=== PATIENT | female | born 1985 | race Caucasian/White ===

== ENCOUNTER 2022-05-06 10:31 | Day surgery (SDC) | payer BC ==
[2022-05-05 13:32] VITALS: BMI 25.7
[~2022-05-06 10:31] MED LIST: LACTATED RINGERS 1,000 ML IV SCH
[2022-05-06 12:07] VITALS: RESP 16; TEMP 97.6
[2022-05-06] MEDS ORDERED: LIDOCAINE 1% (10MG/ML) FOR IV START INTRADERMA ONE (12:08)
[2022-05-06] MEDS ORDERED: PROPOFOL 10 MG/ML 20 ML VIAL IV ONE (12:47)
[2022-05-06] MEDS ORDERED: LIDOCAINE 2% INJ 20 MG/ML (2 ML VIAL) ONE (12:47)
--- NOTE | 2022-05-06 12:59 | P.PCN ---
Date of Procedure: 05/06/22 Procedure(s) Performed: BRIEF HISTORY: Patient is a 36-year-old, pleasant, white female scheduled for an upper endoscopy as a part of evaluation of heartburn for the last 3-4 years duration. She is presently on omeprazole 20 mg daily with good relief in her symptoms. However she continues to have intermittent epigastric discomfort and hence scheduled for colonoscopy to rule out complicated reflux disease. PROCEDURE PERFORMED: Esophagogastroduodenoscopy. PREOPERATIVE DIAGNOSIS: Long-standing history of GERD. IV sedation per anesthesia. PROCEDURE: After informed consent was obtained, the patient was brought into the endoscopy unit. IV sedation was administered by Anesthesia under continuous monitoring. Initially the Olympus GIF-140 video endoscope was inserted into the mouth. Esophagus intubated without any difficulty. It was gradually advanced into the stomach and duodenum and carefully examined. The bulb and the second part of the duodenum appeared normal. The scope at this time was withdrawn to the stomach, adequately insufflated with air, and upon careful examination, mucosa of the antrum, body, cardia and the fundus appeared normal. The scope was then withdrawn into the esophagus. Small sliding type hiatal hernia noted. The GE junction was located at 39 cm from the incisors. The GE junction appeared slightly irregular but there was no evidence of esophagitis or Nelson's esophagus. The esophagus appeared normal. There were no erosions or ulcerations seen and the patient tolerated the procedure well. IMPRESSION: 1. Irregular GE junction but no evidence of esophagitis or Nelson's esophagus. 2. Small hiatal hernia. RECOMMENDATIONS: The findings of this examination were discussed with the patient as well as her family. She was advised to continue with omeprazole 20 mg daily and follow antireflux measures..
[2022-05-06 13:23] VITALS: BP 136/99; PULSE 65
== END 2022-05-06 13:33 | disposition home or self-care (01) ==
LOC: ORWHC2ENDO 10:31
PROVIDERS: ATTEND Internal Medicine Gastroenterology
DX: K21.9 Gastro-esophageal reflux disease without esophagitis (principal); K44.9 Diaphragmatic hernia without obstruction or gangrene; I10 Essential (primary) hypertension; Z79.899 Other long term (current) drug therapy
CPT/HCPCS: 81025; 43235; J2704; J2001

== ENCOUNTER → 2023-07-02 | Outpatient (CLI) | payer BC ==
--- NOTE | 2023-07-02 11:45 | P.GSHP ---
History of Present Illness H&P Date: 07/02/23 Maryuri is a 38 year old female seen in consultation for DR. Johnson regarding a right breast mass. She had a right breast mammogram and ultrasound on 12-28-22 which was BIRAD 2. This was done as the nurse practitioner at [facility] [employer] felt some fullness in the right breast. The patient herself had not felt any lumps masses or nodules of concern. She is not complaining of any skin changes. She is not complaining of any nipple discharge. She has not had any recent trauma or infection in the breast. She has not had any imaging on the left breast. Caffeine: 2 cups/day nicotine: 1-2 cigarettes/week chocolate: twice a week BCP: used in her teens hormones: none periods regular, LMP Sept. 2 Family history: 2 paternal aunt: breast cancer in late 40's maternal aunt: breast cancer in 50's, form this Hormonal history: Menarche: 12 G0 periods regular Surgical History: EGD: heartburn, hiatla hernia tonsillectomy Medical HIsrnia: HTN She'll history: Nicotine: 1-2 cigarettes per week Alcohol:2 drinks/week drugs: none - Constitutional Constitutional: Denies chills, Denies fever - EENT Eyes: denies blurred vision, denies pain Ears: deny: decreased hearing, tinnitus Ears, nose, mouth and throat: Denies headache, Denies sore throat - Breasts Breasts: bilateral: as per HPI - Cardiovascular Cardiovascular: Denies chest pain, Denies shortness of breath - Respiratory Respiratory: Denies cough, Denies 7 - Gastrointestinal Gastrointestinal: Reports as per HPI, Denies abdominal pain, Denies diarrhea, Denies nausea, Denies vomiting - Genitourinary (Female) Genitourinary: Denies dysuria, Denies hematuria - Menstruation Menstruation: Reports period normal - Musculoskeletal Musculoskeletal: Denies myalgias - Integumentary Integumentary: Denies pruritus, Denies rash - Neurological Neurological: Denies numbness, Denies weakness - Psychiatric Psychiatric: Denies anxiety, Denies depression - Endocrine Endocrine: Denies fatigue, Denies weight change - Hematologic/Lymphatic Comment: none - Allergic/Immunologic Allergic/Immunologic: Reports seasonal allergies Past Medical History Past Medical History: GERD/Reflux, Hypertension History of Any Multi-Drug Resistant Organisms: None Reported Past Surgical History: Tonsillectomy Additional Past Surgical History / Comment(s): tonsills at 2 yrs old Past Anesthesia/Blood Transfusion Reactions: No Reported Reaction Past Psychological History: Anxiety Smoking Status: Current every day smoker Past Alcohol Use History: Occasional Additional Past Alcohol Use History / Comment(s): smokes 1/2 ppd, started smoking age 24. Past Drug Use History: None Reported - Past Family History Mother Family Medical History: No Reported History Medications and Allergies Home Medications Medication Instructions Recorded Confirmed Type ALPRAZolam [Xanax] 0.25 mg PO DAILY PRN 05/05/22 07/02/23 History Cetirizine HCl [Zyrtec] 10 mg PO DAILY 05/05/22 07/02/23 History Omeprazole 20 mg PO DAILY 05/05/22 07/02/23 History Sertraline [Zoloft] 100 mg PO HS 05/05/22 07/02/23 History amLODIPine [Norvasc] 2.5 mg PO DAILY 05/05/22 07/02/23 History Allergies Allergy/AdvReac Type Severity Reaction Status Date / Time No Known Allergies Allergy Verified 07/02/23 11:08 Surgical - Exam Vital Signs Temp Pulse Resp BP Pulse Ox 97.9 F 68 16 126/86 99 07/02/23 11:09 07/02/23 11:09 07/02/23 11:09 07/02/23 11:09 07/02/23 11:09 - General no distress - Eyes normal ocular movement - ENT no hearing loss - Neck trachea midline - Respiratory normal respiratory effort, clear to auscultation - Cardiovascular Rhythm: regular Heart Sounds: normal: S1, S2 - Abdomen Abdomen: soft, non tender, no guarding, no rigid, no rebound - Integumentary normal turgor - Neurologic no disoriented, no combative - Musculoskeletal normal gait, normal posture - Psychiatric oriented to time, oriented to person, oriented to place, speech is normal, memory intact Breast Exam: BRA: 38DD Inspection: Bilateral grade 2 ptosis Palpation: Right breast: Multiple positional exam fibrocystic changes, in the lower inner quadrant there is some increased fullness is symmetric to the contralateral breast, no other dominant masses or nodules of concern Right axilla: No adenopathy of concern Left breast: Multi-positional exam no dominant masses or nodules of concern, fibrocystic changes Left axilla: No adenopathy of concern The examination of the upper integument reveals a dark nevus on the lower inner aspect of the right breast Results [place]amm[place] [id number] reviewed Assessment and Plan Assessment: Impression: Fullness right breast lower inner quadrant; this is most likely fibrocystic breast disease but it is more prominent than the contralateral breast and asymmetric Dark nevus right breast Hypertension Plan: Excision of dark nevus right breast Core biopsy area of fullness right breast lower inner quadrant CC: Dr. Johnson
[2023-07-02 15:27] VITALS: BP 126/86; PULSE 68; RESP 16; TEMP 97.9
== END ==
LOC: WWCWWP 10:49
PROVIDERS: ATTEND Surgery
DX: N63.10 Unspecified lump in the right breast, unspecified quadrant (principal); N64.89 Other specified disorders of breast; K21.9 Gastro-esophageal reflux disease without esophagitis; I10 Essential (primary) hypertension; F17.210 Nicotine dependence, cigarettes, uncomplicated; Z80.3 Family history of malignant neoplasm of breast

== ENCOUNTER → 2023-07-22 | Outpatient (CLI) | payer BC ==
--- NOTE | 2023-07-22 16:02 | P.PN ---
Progress Note - Text Progress Note Date: 07/22/23 Maryuri is seen post procedure of core biopsy of the right breast and excision of a right breast nevis. Post operative excision of skin lesion 07-15-23 of right breast, this was benign. Core biopsy right breast benign. The patient tolerated the procedure well Impression: Patient doing well Plan: Repeat bilateral mammogram December 2023 physician exam at that time Cc: Dr. Leslie, Dr. Johnson
[2023-07-22 16:13] VITALS: BP 120/83; PULSE 82; RESP 16; TEMP 97.9
== END ==
LOC: WWCWWP 15:53
PROVIDERS: ATTEND Surgery
DX: Z48.817 Encounter for surgical aftercare following surgery on the skin and subcutaneous tissue (principal); Z48.02 Encounter for removal of sutures

== ENCOUNTER → 2024-01-05 | Outpatient (CLI) | payer OTHER ==
--- NOTE | 2024-01-06 07:39 | MM ---
Reason for Exam: Screening (asymptomatic). Last screening mammogram was performed 12 month(s) ago. Patient History: Menarche at age 12. Paternal aunt had breast cancer, age 40. Paternal aunt had breast cancer, age 50. Maternal aunt had breast cancer, age 55. Last menstrual period: 12/12/2023 Risk Values: Dayna 5 year model risk: 0.4%. NCI Lifetime model risk: 7.4%. Prior Study Comparison: 12/28/2022 Bilateral MG 3D diag mammo w/cad [facility], [facility]. Tissue Density: The breasts are extremely dense, which lowers the sensitivity of mammography. Findings: Analyzed By CAD. There is no suspicious group of microcalcifications or new suspicious mass. Overall Assessment: Negative, BI-RAD 1 Management: Screening Mammogram of both breasts in [address] [facility] will attempt to contact patient to return for supplemental views and ultrasound if indicated. Patient should continue monthly self-breast exams. A clinical breast exam by your physician is recommended on an annual basis. This exam should not preclude additional follow-up of suspicious palpable abnormalities. Note on Dayna scores and lifetime risk: 1. A Dayna score greater than 3% is considered moderate risk. If this is the case, consider specialist referral to assess eligibility for a risk reducing agent. 2. If overall lifetime risk for the development of breast cancer is 20% or higher, the patient may qualify for future screening with alternating mammogram and breast MRI. Electronically signed and approved by: Og Deluca DO
== END | disposition home or self-care (01) ==
LOC: RADMAMWWP 09:08
PROVIDERS: ATTEND Surgery
DX: Z12.31 Encounter for screening mammogram for malignant neoplasm of breast (principal); Z80.3 Family history of malignant neoplasm of breast
CPT/HCPCS: 77063; 77067

== ENCOUNTER → 2024-01-07 | Outpatient (CLI) | payer OTHER ==
[2024-01-07 10:08] VITALS: BP 131/87; PULSE 72; RESP 15; TEMP 97.8
--- NOTE | 2024-01-07 10:11 | P.PN ---
Subjective Progress Note Date: 01/07/24 Principal diagnosis: Dense breast/fibrocystic breast changes 07/02/23 Maryuri is a 38 year old female seen in consultation for DR. Johnson regarding a right breast mass. She had a right breast mammogram and ultrasound on 12-28-22 which was BIRAD 2. This was done as the nurse practitioner at [facility] [employer] felt some fullness in the right breast. The patient herself had not felt any lumps masses or nodules of concern. She is not complaining of any skin changes. She is not complaining of any nipple discharge. She has not had any recent trauma or infection in the breast. She has not had any imaging on the left breast. 01-07-24 The patient has not noted any new lumps masses or nodules for which she is concerned. She had a bilateral mammogram on 01-05-2024 this is benign BI-RADS 1. The breast are very dense. We have discussed MRI versus ultrasound and at this time we are going to follow her conservatively with a repeat mammogram in 1 year. If she notices anything of concern she will certainly call us sooner. The patient did have a nevus removed from her right breast on 07-15-2023 which was benign. Additionally she had a core biopsy of the right breast which was also benign, this was done for skin thickening. Caffeine: 2 cups/day nicotine: 1-2 cigarettes/week chocolate: twice a week BCP: used in her teens hormones: none periods regular, LMP Sept. 2 Family history: 2 paternal aunt: breast cancer in late 40's maternal aunt: breast cancer in 50's, form this Hormonal history: Menarche: 12 G0 periods regular Surgical History: EGD: heartburn, hiatla hernia tonsillectomy Medical HIsrnia: HTN She'll history: Nicotine: 1-2 cigarettes per week Alcohol:2 drinks/week drugs: none - Constitutional Constitutional: Denies chills, Denies fever - EENT Eyes: denies blurred vision, denies pain Ears: deny: decreased hearing, tinnitus Ears, nose, mouth and throat: Denies headache, Denies sore throat - Breasts Breasts: bilateral: as per HPI - Cardiovascular Cardiovascular: Denies chest pain, Denies shortness of breath - Respiratory Respiratory: Denies cough - Gastrointestinal Gastrointestinal: Reports as per HPI, Denies abdominal pain, Denies diarrhea, Denies nausea, Denies vomiting - Genitourinary (Female) Genitourinary: Denies dysuria, Denies hematuria - Menstruation Menstruation: Reports period normal - Musculoskeletal Musculoskeletal: Denies myalgias - Integumentary Integumentary: Denies pruritus, Denies rash - Neurological Neurological: Denies numbness, Denies weakness - Psychiatric Psychiatric: Denies anxiety, Denies depression - Endocrine Endocrine: Denies fatigue, Denies weight change - Hematologic/Lymphatic Comment: none - Allergic/Immunologic Allergic/Immunologic: Reports seasonal allergies Past Medical History Past Medical History: GERD/Reflux, Hypertension History of Any Multi-Drug Resistant Organisms: None Reported Past Surgical History: Tonsillectomy Additional Past Surgical History / Comment(s): tonsills at 2 yrs old Past Anesthesia/Blood Transfusion Reactions: No Reported Reaction Past Psychological History: Anxiety Smoking Status: Current every day smoker Past Alcohol Use History: Occasional Additional Past Alcohol Use History / Comment(s): smokes 1/2 ppd, started smoking age 24. Past Drug Use History: None Reported - Past Family History Mother Family Medical History: No Reported History Medications and Allergies Home Medications Medication Instructions Recorded Confirmed Type ALPRAZolam [Xanax] 0.25 mg PO DAILY PRN 05/05/22 07/02/23 History Cetirizine HCl [Zyrtec] 10 mg PO DAILY 05/05/22 07/02/23 History Omeprazole 20 mg PO DAILY 05/05/22 07/02/23 History Sertraline [Zoloft] 100 mg PO HS 05/05/22 07/02/23 History amLODIPine [Norvasc] 2.5 mg PO DAILY 05/05/22 07/02/23 History Allergies Allergy/AdvReac Type Severity Reaction Status Date / Time No Known Allergies Allergy Verified 07/02/23 11:08 Objective - Vital Signs Vital signs: Vital Signs Temp 97.8 F 01/07/24 09:38 Pulse 72 01/07/24 09:38 Resp 15 01/07/24 09:38 BP 131/87 01/07/24 09:38 Pulse Ox 100 01/07/24 09:38 FiO2 Intake & Output 01/06/24 01/07/24 01/07/24 18:59 06:59 18:59 Weight 81.193 kg - Constitutional General appearance: Present: cooperative - EENT Eyes: Present: EOMI ENT: Present: hearing grossly normal - Neck Neck: Present: normal ROM - Respiratory Respiratory: bilateral: CTA - Cardiovascular Rhythm: regular Heart sounds: normal: S1, S2 - Gastrointestinal General gastrointestinal: Present: soft - Integumentary Integumentary: Present: normal turgor - Musculoskeletal Musculoskeletal: Present: gait normal - Psychiatric Psychiatric: Present: A&O x's 3, appropriate affect, intact judgment & insight - Additional findings Additional findings: Breast Exam: BRA: 38DD Inspection: Bilateral grade 2 ptosis Palpation: Right breast: Multiple positional exam fibrocystic changes, in the lower inner q uadrant there is some increased fullness is assymetric to the contralateral breast, no other dominant masses or nodules of concern; well healed scar where mole was removed from the right breast no evidence of recurrence Right axilla: No adenopathy of concern Left breast: Multi-positional exam no dominant masses or nodules of concern, fibrocystic changes Left axilla: No adenopathy of concern Assessment and Plan Assessment: Impression: Fullness right breast lower inner quadrant; this is most likely fibrocystic breast disease but it is more prominent than the contralateral breast and asymmetric Hypertension Asymmetric area of right breast done on 07-15-2023 which revealed benign breast tissue Plan: Very dense breast, recommend MRI, we are going to schedule this if her insurance will not allow it we will get a right breast ultrasound of the area of asymmetry of the lower inner aspect Follow-up after above test done Bilateral mammogram in 1 year Patient to do monthly breast exams if she notes anything of concern she will contact us CC: Dr. Johnson
== END | disposition home or self-care (01) ==
LOC: WWCWWP 09:02
PROVIDERS: ATTEND Surgery
DX: N63.14 Unspecified lump in the right breast, lower inner quadrant (principal); I10 Essential (primary) hypertension

== ENCOUNTER → 2025-01-17 | Outpatient (CLI) | payer OTHER ==
--- NOTE | 2025-01-17 13:58 | MM ---
Reason for Exam: Screening (asymptomatic). Last mammogram was performed 1 year(s) and 1 month(s) ago. Patient History: Menarche at age 12. Patient has no children. Currently using Hormonal Contraceptives, for 2 years. Paternal aunt had breast cancer, age 40. Paternal aunt had breast cancer, age 50. Maternal aunt had breast cancer, age 55. Last menstrual period: 12/31/2024 Risk Values: Dayna 5 year model risk: 0.6%. NCI Lifetime model risk: 11.1%. Prior Study Comparison: 12/28/2022 Bilateral MG 3D diag mammo w/cad [facility], [facility]. 01/05/2024 Bilateral MG 3D screening mammo w/cad, [facility]. Tissue Density: The breasts are extremely dense, which lowers the sensitivity of mammography. Findings: Analyzed By CAD. There is no suspicious group of microcalcifications or new suspicious mass in either breast. Overall Assessment: Negative, BI-RAD 1 Management: Screening Mammogram of both breasts in 1 year. . Patient should continue monthly self-breast exams. A clinical breast exam by your physician is recommended on an annual basis. This exam should not preclude additional follow-up of suspicious palpable abnormalities. Note on Dayna scores and lifetime risk: 1. A Dayna score greater than 3% is considered moderate risk. If this is the case, consider specialist referral to assess eligibility for a risk reducing agent. 2. If overall lifetime risk for the development of breast cancer is 20% or higher, the patient may qualify for future screening with alternating mammogram and breast MRI. [facility], , 01/17/2025 1:56 PM. Electronically signed and approved by: Getachew Crawford M.D. Radiologis
== END | disposition home or self-care (01) ==
LOC: RADMAMWWP 12:51
PROVIDERS: ATTEND Obstetrics & Gynecology
DX: Z12.31 Encounter for screening mammogram for malignant neoplasm of breast (principal); R92.343 Mammographic extreme density, bilateral breasts; Z80.3 Family history of malignant neoplasm of breast; Z79.3 Long term (current) use of hormonal contraceptives
CPT/HCPCS: 77063; 77067